=== PATIENT | female | born 1945 | race Caucasian/White ===

== ENCOUNTER 2017-02-24 08:23 | Emergency (ER) | payer MEDICARE, BC ==
[~2017-02-24] VITALS: Ht 157.5 cm; Wt 56.8 kg
[2017-02-24 08:33] VITALS: BP 190/78
[2017-02-24] MEDS ORDERED: LIDOCAINE 1%, 20ML SQ ONE (10:00)
== END 2017-02-24 10:48 | disposition home or self-care (01) ==
LOC: ED 08:51
DX: S01.81XA Laceration without foreign body of other part of head, initial encounter (principal); E03.9 Hypothyroidism, unspecified; W01.0XXA Fall on same level from slipping, tripping and stumbling without subsequent striking against object, initial encounter; Y93.89 Activity, other specified; Y92.009 Unspecified place in unspecified non-institutional (private) residence as the place of occurrence of the external cause; Y99.9 Unspecified external cause status
CPT/HCPCS: 12051; 99284